=== PATIENT | female | born 1940 | race Caucasian/White ===

== ENCOUNTER → 2019-09-09 08:25 | Outpatient (CLI) | payer MEDICARE, SELFPAY ==
--- NOTE | 2019-09-09 | DI.MG.S_ITS ---
BILATERAL DIGITAL SCREENING MAMMOGRAM 3D/2D WITH CAD: 09/09/2019 CLINICAL: Routine screening. Comparison is made to exams dated: 01/28/2018 mammogram, 01/18/2016 mammogram, 04/09/2014 mammogram, and 08/13/2012 mammogram - [facility]. There are scattered fibroglandular elements in both breasts. Current study was also evaluated with a Computer Aided Detection (CAD) system. There are mole markers on both breasts. No significant masses, calcifications, or other findings are seen in either breast. There has been no significant interval change. IMPRESSION: NEGATIVE There is no mammographic evidence of malignancy. A 1 year screening mammogram is recommended. This exam was interpreted at Station ID: [id number]. NOTE: For mammograms, a report in lay terms will be sent to the patient. Approximately 15% of breast malignancies will not be visualized mammographically. In the management of a palpable breast mass, a negative mammogram must not discourage biopsy of a clinically suspicious lesion. Electronically Signed By: Scar foreman/carmella:09/09/2019 16:13:47 letter sent: Normal Exam ACR BI-RADS Category 1: Negative 3341F
== END ==
PROVIDERS: PCP Family Medicine; Visit Provider Family Medicine
DX: Z12.31 Encounter for screening mammogram for malignant neoplasm of breast (principal)
CPT/HCPCS: 77063; 77067

== ENCOUNTER → 2021-03-16 13:46 | Outpatient (CLI) | payer MEDICARE, SELFPAY ==
--- NOTE | 2021-03-16 13:52 | DI.US.S_ITS ---
PROCEDURE: US CHEST COMPARISON: None. INDICATIONS: Pleural effusion, not elsewhere classified FINDINGS: Study was initially scheduled for ultrasound-guided thoracentesis. Ultrasound evaluation demonstrated a small left-sided pleural fluid collection. Safe access site for small left-sided pleural fluid collection could not be localized using ultrasound guidance. Thoracentesis was canceled. IMPRESSION: No safe access site for small left-sided pleural fluid thoracentesis. Thoracentesis was canceled. Small left-sided pleural fluid collection could potentially be accessed under CT guidance if clinically indicated. Dictated by: Luz Maria Hall MD, PhD on 03/16/2021 at 15:33 Approved by: Luz Maria Hall MD, PhD on 03/16/2021 at 15:35
--- NOTE | 2021-03-16 14:59 | DI.RAD.S_ITS ---
PROCEDURE: XR CHEST 2V INDICATIONS: POSSIBLE LEFT PLEURAL EFFUSION TECHNIQUE: 2 views of the chest were acquired. COMPARISON: ALEKSANDAR Pope, CHEST 2 VIEW, 03/10/2008, 15:35. FINDINGS: Surgical changes and devices: None. Lungs and pleura: Lungs are clear. No pneumothorax. Mediastinum: Mediastinal contours are normal. Heart size is normal. Small left-sided pleural effusion. Bones and chest wall: No suspicious bony abnormalities. Soft tissues appear unremarkable. IMPRESSION: Small left-sided pleural effusion. No lung consolidation. Dictated by: Luz Maria Hall MD, PhD on 03/16/2021 at 15:12 Approved by: Luz Maria Hall MD, PhD on 03/16/2021 at 15:20
== END ==
PROVIDERS: PCP Family Medicine; Referring Provider Nurse Practitioner Family; Visit Provider Nurse Practitioner Family
DX: J90 Pleural effusion, not elsewhere classified (principal)
CPT/HCPCS: 71046; 76604

== ENCOUNTER → 2021-09-20 10:56 | Outpatient (CLI) | payer MEDICARE, SELFPAY ==
--- NOTE | 2021-09-20 | DI.MG.S_ITS ---
BILATERAL DIGITAL SCREENING MAMMOGRAM 3D/2D WITH CAD: 09/20/2021 CLINICAL: Routine screening. Comparison is made to exams dated: 09/09/2019 mammogram, 01/28/2018 mammogram, 01/18/2016 mammogram, and 04/09/2014 mammogram - [facility]. There are scattered fibroglandular elements in both breasts. Current study was also evaluated with a Computer Aided Detection (CAD) system. There are mole markers on both breasts. No significant masses, calcifications, or other findings are seen in either breast. There has been no significant interval change. IMPRESSION: NEGATIVE There is no mammographic evidence of malignancy. A 1 year screening mammogram is recommended. This exam was interpreted at Station ID: [id number]. NOTE: For mammograms, a report in lay terms will be sent to the patient. Approximately 15% of breast malignancies will not be visualized mammographically. In the management of a palpable breast mass, a negative mammogram must not discourage biopsy of a clinically suspicious lesion. Electronically Signed By: Surya martinez/carmella:09/20/2021 14:58:24 letter sent: Normal Exam ACR BI-RADS Category 1: Negative [id number]
== END ==
PROVIDERS: PCP Family Medicine; Referring Provider Family Medicine; Visit Provider Family Medicine
DX: Z12.31 Encounter for screening mammogram for malignant neoplasm of breast (principal)
CPT/HCPCS: 77063; 77067